=== PATIENT | female | born 1975 | race Caucasian/White ===

== ENCOUNTER 2018-10-02 13:11 | Outpatient (RCR) | payer BC ==
[~2018-10-02 13:11] MED LIST: ALBU8.5H2 IH; CEPH250T PO; EST05TD TD; ETAN50PE SQ; FEXO180T PO; HYDR-707 PO; IBP800T PO; OMG1KC PO; PROBIOTIC1 EACH PO
== END 2018-10-02 14:53 | disposition home or self-care (01) ==
PROVIDERS: ATTEND Orthopaedic Surgery Sports Medicine
DX: M17.12 Unilateral primary osteoarthritis, left knee (principal)

== ENCOUNTER 2019-09-09 12:24 | Emergency (ER) | payer BC ==
[~2019-09-09] VITALS: Ht 165 cm; Wt 69.0 kg
--- OUTSIDE RECORDS SUMMARY | 2019-09-09 12:30 | XMS REPORT ---
Author Author Kisha PRICE [facility] eClinicalWorks Address Unknown Phone Unavailable Care Team Providers Care Temporary Help Agency Referral Clerk Name Role Phone JOSE JUAN PRICE CP Unavailable Allergies, Adverse Reactions, Alerts Substance Reaction Event Type Sulfacet-R hives Drug Allergy Problems Problem Type Condition Code Onset Dates Condition Statu s Assessment Knee pain, left M25.562 Active Medications Medication Code System Code Instructions Start Date End Date Status Dosage Probiotic [facility] [address]22787 not define d Turmeric [facility] [address]-32 not defin ed Iron [facility] [address]-74 not define d Glutathione [facility] [address]-88 not de fined Vitamin D [facility] [address]-70 not defi alejandra Procedures Procedure Coding System Code Date Office Visit, New Pt., Level 2 CPT-4 04753 A pril 2015 Vital Signs Date/Time: July 04, 2015 Cardiac Monitoring Heart Rate 86 bpm Temperature 98.2 F Weight 160.3 lbs Blood Pressure Diastolic 76 mmHg Blood Pressure Systolic 112 mmHg Results No Known Results Summary Purpose eClinicalWorks Submission
--- OUTSIDE RECORDS SUMMARY | 2019-09-09 12:30 | XMS REPORT | Continuity of Care Document ---
Author Organization Unknown Address Unknown Phone Unavailable Allergies Active Description Code Type Severity Reaction Onset Reported/Identified Relationship to Patient Clinical Status Yes Sulfa (Sulfonamide Antibiotics) [id number] Drug Allergy Unknown N/A 009 Medications There is no data. Problems Date Dx Coded Attending Type Code Diagnosis Diagnosed By 04/02/2011 Ot 617.9 04/02/2011 Ot 620.2 12/25/2014 Ot 617.9 12/25/2014 Ot V72.63 12/26/2014 Ot 617.9 12/26/2014 Ot V72.63 10/02/2018 PEPE MATHUR, FRANCISCO Wild Ot M17.12 UNILATERAL PRIMARY OSTEOARTHRITIS, LEFT Procedures There is no data. Results There is no data. Encounters ACCT No. Visit Date/Time Discharge Status Pt. Type Provider Facility Loc./Unit Complaint [id number] 09/13/2018 11:03:00 09/13/2018 23:59: 00 DIS Outpatient FRANCISCO CANTU [id number] 09/13/2018 10:06:00 09/13/2018 23:59: 00 DIS Outpatient FRANCISCO CANTU [id number] 04/19/2018 09:00:00 04/19/2018 23:59: 59 CLS Outpatient DONNELL ALAMO APRN [facility] [id number] 10/02/2018 13:11:00 019 14:53:00 DIS Outpatient FRANCISCO CANTU MD [facility] REHAB L KNEE ARTHRITIS [id number] 04/19/2018 13:10:00 019 23:59:59 CLS Preadmit SARAH HURLEY APRN [facility] RAD SCREENING [id number] 09/09/2019 12:25:[address] Emergency SHIRA OTTO MD [facility] ER POST OP/L KNEE INFECTION [id number] 12/25/2014 11:00:00 Document Registration [id number] 12/25/2014 11:00:00 Document Registration [id number] 12/25/2014 11:00:00 Document Registration [id number] 12/25/2014 11:00:00 Document Registration [id number] 04/01/2011 06:24:00 Document Registration [id number] 03/25/2011 08:32:00 Document Registration
--- NOTE | 2019-09-09 13:05 | ED Lower Extremity ---
General Stated Complaint: POST OP/L KNEE INFECTION Source: patient Exam Limitations: no limitations (QUITA SOTO,) History of Present Illness Date Seen by Provider: Sep 09, 2019 Time Seen by Provider: 12:45 Initial Comments Ms. Alexander is here regarding L knee swelling and purulent drainage from a suture site. She had a L knee surgery at [facility] on 08/[address] Robertson and was feeling fine. Tuesday (09/03) she noted some redness around the suture site, but was told this was her skin reacting to the sutures. They were removed that day. However, she arrived to the [facility] ER yesterday with increasing warmth and swelling from the same suture site. She was prescribed clindamycin QID. ER doc at [facility] commented that it was a superficial infection but not in the joint space. She has returned to using crutches because she is unable to ambulate. Pt states she is taking Actemra for rheumatoid arthritis treatment. Onset: yesterday Severity: moderate Pain/Injury Location: left knee Method of Injury: other (surgical site) Modifying Factors: Improves With Movement (QUITA SOTO,) Allergies and Home Medications Allergies Coded Allergies: Sulfa (Sulfonamide Antibiotics) (Verified Allergy, Unknown, 08/22/08) Home Medications Albuterol 8.5 Gm Hfa.aer.ad, 8.5 GM IH Q4H PRN, (Reported) 2 PUFFS Cephalexin Monohydrate 250 Mg Tablet, 1 EACH PO TID, (Reported) Estradiol 0.05 Mg Patch, 0.05 MG TD Th@09, (Reported) Etanercept 50 Mg/1 Ml Pen.injctr, 50 MG SQ WEEKLY, (Reported) Fexofenadine Hcl 180 Mg Tablet, 1 TAB PO DAILY, (Reported) Hydrocodone Bit/Acetaminophen 1 Each Tablet, 1-2 EACH PO Q4H, (Reported) NEEDED FOR PAIN Ibuprofen 800 Mg Tab, 800 MG PO TID, (Reported) NEEDED FOR PAIN Lactobacillus Rhamnosus Gg 1 Each Capsule, 1 EACH PO DAILY, (Reported) [place] 3 Polyunsat Fatty Acids 1,000 Mg Cap, 2,000 MG PO DAILY, (Reported) Patient Home Medication List Home Medication List Reviewed: Yes (SHIRA OTTO MD) Review of Systems Constitutional: No chills, No fever EENTM: no symptoms reported Respiratory: no symptoms reported Cardiovascular: no symptoms reported Gastrointestinal: no symptoms reported Genitourinary: no symptoms reported Musculoskeletal: joint pain (L knee) Skin: see HPI Psychiatric/Neurological: No Symptoms Reported (QUITA SOTO,) Past Dtjcjyl-Jetpop-Hjjfqc Hx Past Med/Social Hx: Reviewed Nursing Past Med/Soc Hx (SHIRA OTTO MD) Patient Social History Recent Foreign Travel: No Contact w/Someone Who Travel: No (QUITA SOTO) Immunizations Up To Date Date of Influenza Vaccine: Nov 30, 2010 (QUITA SOTO) Past Medical History Reproductive Disorders: Yes (BLEEDING AND PAIN) (QUITA SOTO) Surgeries: Yes Hysterectomy, Orthopedic (Left knee) Respiratory: No Cardiac: No Neurological: No : No Reproductive Disorders: No Genitourinary: No Gastrointestinal: No Musculoskeletal: Yes Rheumatoid Arthritis Endocrine: No HEENT: No Cancer: No Psychosocial: No Integumentary: No (SHIRA OTTO MD) Physical Exam Vital Signs Vital Signs - First Documented 09/09/19 13:16 Temp 36.8 Pulse 75 Resp 16 B/P (MAP) 158/101 (120) Pulse Ox 99 O2 Delivery Room Air (SHIRA OTTO MD) Vital Signs Capillary Refill : (QUITA SOTO,) Height, Weight, BMI Height: '" Weight: lbs. oz. kg; BMI Method: (QUITA SOTO) General Appearance: WD/WN, no apparent distress HEENT: normal ENT inspection Cardiovascular: regular rate, rhythm, no edema, no murmur Respiratory: lungs clear, normal breath sounds, no respiratory distress Legs: left leg other (tenderness over the anterior distal left thigh) Knees: left knee other (left knee is quite warm, swollen, and tender to the touch. 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 There is purulent drainage coming from a suture puncture at the left knee incision) (SHIRA OTTO MD) Progress/Results/Core Measures Results/Orders My Orders Orders - SHIRA OTTO MD Wound Culture (09/09/19 14:03) (SHIRA OTTO MD) Vital Signs/I&O 09/09/19 09/09/19 13:16 14:05 Temp 36.8 36.4 Pulse 75 80 Resp 16 16 B/P (MAP) 158/101 (120) 136/96 Pulse Ox 99 98 O2 Delivery Room Air Room Air (SHIRA OTTO MD) Progress Progress Note : Time: 13:35 Progress Note Unfortunately [facility] does not have orthopedic coverage this weekend. I'm concerned that patient has an abscess in the left knee associated with her surgical incision. Furthermore I am also concerned she may have a septic joint especially since she is having trouble bearing weight and cannot walk without crutches. This is a change in her status from a couple of days ago. It is my opinion she needs prompt evaluation by an orthopedic surgeon. I am especially concerned because she is immunocompromised as she takes Actemra for rheumatoid arthritis. I contacted Dr. Donovan, orthopedic surgeon information broker for Dr. Robertson at [facility]. He has recommended evaluation in their ER. Dr. Desir is the ER physician who will be accepting the transfer. Case has been reviewed with him as well. Wound culture was obtained and patient was transferred by private vehicle. (SHIRA OTTO MD) Departure Impression Primary Impression: Postoperative infection of knee Disposition: XFER T-TRM HOSP Condition: Stable Transfer Transfer Reason: Exceeds level of care Time Spoke to Accepting Phy: 13:10 Transfer Progress Notes Transfer accepted by Dr. Donovan in orthopedics and Dr. Desir in the emergency room. Transfer Time: 13:42 Method of Transfer: Private Vehicle (SHIRA OTTO MD) Departure-Patient Inst. Referrals: ARMANI BRENNER MD (PCP/Family) Primary Care Physician This patient was interviewed, seen, and examined by me personally along with Quita Soto, MS4. I agree with MS 4 history, physical, assessment, and documentation except where I have added or documented otherwise. Patient is being transferred to [facility] for orthopedic evaluation. Wound culture was collected but no other treatments were rendered or workup pursued as she will be evaluated in the emergency room at [facility]. (SHIRA OTTO MD) Copy Copies To 1: ARMANI BRENNER MD, LAUREN, Sep 09, 2019 13:05 SHIRA OTTO MD Sep 09, 2019 13:37
--- NOTE | 2019-09-09 13:15 | NUR ---
Patient is going to be transferred to [place] via private vehicle. Face sheet and vitals faxed to [facility].
[2019-09-09 14:05] VITALS: BP 136/96
--- NOTE | 2019-09-09 14:15 | NUR ---
Report called to Nicolas BOWDEN
== END 2019-09-09 14:21 ==
LOC: EDUNIT# 12:24 → ER 12:25
DX: T81.40XA Infection following a procedure, unspecified, initial encounter (principal); M06.9 Rheumatoid arthritis, unspecified; Z88.2 Allergy status to sulfonamides; Z79.52 Long term (current) use of systemic steroids; Z79.1 Long term (current) use of non-steroidal anti-inflammatories (NSAID)
CPT/HCPCS: 87070; 87077; 87186; 87205

== ENCOUNTER 2019-10-15 13:15 | Outpatient (RCR) | payer BC ==
[2019-09-20 11:26] VITALS: BP 153/84
[2019-09-20] MEDS: cefTRIAXone 2,000 MG/SWFI 20 ML IV PUSH IV SCH ×2 (11:33)
[2019-09-21 14:04] VITALS: BP 145/83
[2019-09-21] MEDS: cefTRIAXone 2,000 MG/SWFI 20 ML IV PUSH IV SCH ×2 (14:04)
[2019-09-22] MEDS: cefTRIAXone 2,000 MG/SWFI 20 ML IV PUSH IV SCH ×2 (09:20)
[2019-09-22 09:31] VITALS: BP 137/86
[2019-09-23 09:15] VITALS: BP 130/90
[2019-09-23] MEDS: cefTRIAXone 2,000 MG/SWFI 20 ML IV PUSH IV SCH ×2 (09:25)
[2019-09-24] MEDS: cefTRIAXone 2,000 MG/SWFI 20 ML IV PUSH IV SCH ×2 (13:33)
[2019-09-24 13:35] VITALS: BP 145/85
[2019-09-25] MEDS: cefTRIAXone 2,000 MG/SWFI 20 ML IV PUSH IV SCH ×2 (14:02)
[2019-09-25 14:10] VITALS: BP 147/84
[2019-09-25 14:19] LABS: HEMOGLOBIN 11.4 G/DL (11.5-16.0); MEAN PLATELET VOLUME 9.5 FL (7.4-10.4); RED CELL DISTRIBUTION WIDTH 13.3 % (10.0-14.5); WHITE BLOOD COUNT 3.7 10^3/uL (4.3-11.0)
[2019-09-25 14:33] LABS: CHLORIDE 104 MMOL/L (98-107); POTASSIUM 3.9 MMOL/L (3.6-5.0); SODIUM 139 MMOL/L (135-145)
[2019-09-25 14:34] LABS: CALCIUM 8.9 MG/DL (8.5-10.1)
[2019-09-25 14:35] LABS: GLUCOSE 86 MG/DL (70-105)
[2019-09-25 14:36] LABS: CARBON DIOXIDE 25 MMOL/L (21-32)
[2019-09-25 14:38] LABS: CREATININE SERUM 0.71 MG/DL (0.60-1.30); GFR ESTIMATED > 60
[2019-09-25 14:39] LABS: BUN/CREATININE RATIO 18
[2019-09-26 13:58] VITALS: BP 145/96
[2019-09-26] MEDS: cefTRIAXone 2,000 MG/SWFI 20 ML IV PUSH IV SCH ×2 (14:04)
[2019-09-27] MEDS: cefTRIAXone 2,000 MG/SWFI 20 ML IV PUSH IV SCH ×2 (12:30)
[2019-09-27 12:43] VITALS: BP 129/74
[2019-09-28] MEDS: cefTRIAXone 2,000 MG/SWFI 20 ML IV PUSH IV SCH ×2 (14:20)
[2019-09-28 14:30] VITALS: BP 136/91
[2019-09-29] MEDS: cefTRIAXone 2,000 MG/SWFI 20 ML IV PUSH IV SCH ×2 (09:14)
[2019-09-29 09:20] VITALS: BP 159/94
[2019-09-30] MEDS: cefTRIAXone 2,000 MG/SWFI 20 ML IV PUSH IV SCH ×2 (09:10)
[2019-09-30 09:15] VITALS: BP 152/93
[2019-10-01 14:05] VITALS: BP 123/80
[2019-10-01] MEDS: cefTRIAXone 2,000 MG/SWFI 20 ML IV PUSH IV SCH ×2 (14:11)
[2019-10-02 13:05] VITALS: BP 120/83
[2019-10-02] MEDS: cefTRIAXone 2,000 MG/SWFI 20 ML IV PUSH IV SCH ×2 (13:10)
[2019-10-02 13:19] LABS: HEMOGLOBIN 11.2 G/DL (11.5-16.0); MEAN PLATELET VOLUME 9.5 FL (7.4-10.4); RED CELL DISTRIBUTION WIDTH 13.6 % (10.0-14.5); WHITE BLOOD COUNT 2.8 10^3/uL (4.3-11.0)
[2019-10-02 13:38] LABS: BUN/CREATININE RATIO 16; CALCIUM 8.6 MG/DL (8.5-10.1); CARBON DIOXIDE 27 MMOL/L (21-32); CHLORIDE 105 MMOL/L (98-107); CREATININE SERUM 0.69 MG/DL (0.60-1.30); GFR ESTIMATED > 60; GLUCOSE 100 MG/DL (70-105); POTASSIUM 4.1 MMOL/L (3.6-5.0); SODIUM 142 MMOL/L (135-145)
[2019-10-03] MEDS: cefTRIAXone 2,000 MG/SWFI 20 ML IV PUSH IV SCH ×2 (14:55)
[2019-10-03 15:05] VITALS: BP 138/67
[2019-10-04 15:15] VITALS: BP 149/82
[2019-10-04] MEDS: cefTRIAXone 2,000 MG/SWFI 20 ML IV PUSH IV SCH ×2 (15:26)
[2019-10-05 15:40] VITALS: BP 141/95
[2019-10-05] MEDS: cefTRIAXone 2,000 MG/SWFI 20 ML IV PUSH IV SCH ×2 (15:44)
[2019-10-06 09:15] VITALS: BP 145/89
[2019-10-06] MEDS: cefTRIAXone 2,000 MG/SWFI 20 ML IV PUSH IV SCH ×2 (09:15)
[2019-10-07] MEDS: cefTRIAXone 2,000 MG/SWFI 20 ML IV PUSH IV SCH ×2 (09:14)
[2019-10-07 09:20] VITALS: BP 140/83
[2019-10-08] MEDS: cefTRIAXone 2,000 MG/SWFI 20 ML IV PUSH IV SCH ×2 (13:18)
[2019-10-08 13:22] VITALS: BP 139/89
[2019-10-09] MEDS: cefTRIAXone 2,000 MG/SWFI 20 ML IV PUSH IV SCH ×2 (14:43)
[2019-10-09 14:45] VITALS: BP 142/94
[2019-10-09 14:50] LABS: BASOPHILS # (AUTO) 0.1 10^3/uL (0.0-0.1); BASOPHILS % (AUTO) 2 % (0-10); EOSINOPHILS # (AUTO) 0.3 10^3/uL (0.0-0.3); EOSINOPHILS % (AUTO) 7 % (0-10); HEMATOCRIT 36 % (35-52); LYMPHOCYTES # (AUTO) 1.9 X 10^3 (1.0-4.0); LYMPHOCYTES % (AUTO) 41 % (12-44); MEAN CORPUSCULAR HEMOGLOBIN 31 PG (25-34); MEAN CORPUSCULAR HGB CONC 34 G/DL (32-36); MEAN CORPUSCULAR VOLUME 90 FL (80-99); MEAN PLATELET VOLUME 9.8 FL (7.4-10.4); MONOCYTES # (AUTO) 0.4 X 10^3 (0.0-1.0); MONOCYTES % (AUTO) 9 % (0-12); NEUTROPHILS % (AUTO) 42 % (42-75); PLATELET COUNT 107 10^3/uL (130-400); RED CELL DISTRIBUTION WIDTH 13.2 % (10.0-14.5); WHITE BLOOD COUNT 4.8 10^3/uL (4.3-11.0)
[2019-10-09 15:05] LABS: BUN/CREATININE RATIO 15; CALCIUM 8.9 MG/DL (8.5-10.1); CARBON DIOXIDE 26 MMOL/L (21-32); CHLORIDE 106 MMOL/L (98-107); CREATININE SERUM 0.72 MG/DL (0.60-1.30); GFR ESTIMATED > 60; GLUCOSE 85 MG/DL (70-105); SODIUM 140 MMOL/L (135-145)
[2019-10-09 15:17] LABS: ERYTHROCYTE SEDIMENTATION RATE 10 MM/HR (0-20)
[2019-10-10] MEDS: cefTRIAXone 2,000 MG/SWFI 20 ML IV PUSH IV SCH ×2 (14:42)
[2019-10-10 14:50] VITALS: BP 129/86
[2019-10-11] MEDS: cefTRIAXone 2,000 MG/SWFI 20 ML IV PUSH IV SCH ×2 (14:20)
[2019-10-11 14:25] VITALS: BP 128/91
[2019-10-12 11:30] VITALS: BP 145/84
--- NOTE | 2019-10-12 11:30 | NUR ---
PT ASKED THIS NURSE TO CALL DR FULTON OFFICE IN [place] FOR ORDER TO DC PICC LINE ON TUESDAY AFTER HER ANTIBX. PT REPORTS HAS APPT WITH ON TUESDAY. TC MADE TO DR ESPARZA, NO ANSWER, LM ON TO CALL ME BACK ABOUT ORDER . OFFICE SLOSED AT 1200 AND THIS NURSE DID NOT RECEIVE A TC BACK.
[2019-10-12] MEDS: cefTRIAXone 2,000 MG/SWFI 20 ML IV PUSH IV SCH ×2 (11:39)
[2019-10-13] MEDS: cefTRIAXone 2,000 MG/SWFI 20 ML IV PUSH IV SCH ×2 (09:18)
[2019-10-13 09:26] VITALS: BP 133/91
[2019-10-14] MEDS: cefTRIAXone 2,000 MG/SWFI 20 ML IV PUSH IV SCH ×2 (09:05)
[2019-10-14 09:12] VITALS: BP 139/83
[~2019-10-15] VITALS: Ht 165.1 cm; Wt 69.0 kg
[~2019-10-15 13:15] MED LIST changes: +WATER (STERILE) FOR INJECTION 20 ML ONE; +cefTRIAXone 2 GM IV (ROCEPHIN) VIAL ONE; +cefTRIAXone 2,000 MG/SWFI 20 ML IV PUSH IV SCH
[2019-10-15] MEDS: cefTRIAXone 2,000 MG/SWFI 20 ML IV PUSH IV SCH ×2 (13:23)
[2019-10-15 13:30] VITALS: BP 149/87
== END 2019-10-15 13:30 | disposition home or self-care (01) ==
LOC: SDC 13:15
PROVIDERS: ATTEND Specialist
DX: M25.462 Effusion, left knee (principal)
CPT/HCPCS: 36415; 80048; 85025; 85027; 85652; 86141; 96374

== ENCOUNTER → 2022-01-11 | Outpatient (CLI) | payer BC ==
[~2022-01-11] MED LIST changes: -WATER (STERILE) FOR INJECTION 20 ML ONE; -cefTRIAXone 2 GM IV (ROCEPHIN) VIAL ONE; -cefTRIAXone 2,000 MG/SWFI 20 ML IV PUSH IV SCH
--- NOTE | 2022-01-11 12:51 | Diagnostic Imaging Report ---
INDICATION: Routine screening. COMPARISON: 07/05/2012. TECHNIQUE: 2D and 3D bilateral screening mammography was performed with CAD. FINDINGS: Scattered fibroglandular densities are identified bilaterally. No mass or malignant-appearing microcalcifications are seen. The axillae are unremarkable. IMPRESSION: No mammographic features suspicious for malignancy are identified. ACR BI-RADS Category 1: Negative. Result letter will be mailed to the patient. Note: At least 10% of breast cancer is not imaged by mammography. Dictated by: Dictated on workstation # [id number]
== END ==
LOC: RAD 11:27
PROVIDERS: ATTEND Family Medicine
DX: Z12.31 Encounter for screening mammogram for malignant neoplasm of breast (principal)
CPT/HCPCS: 77063; 77067

== ENCOUNTER → 2022-06-29 | Outpatient (CLI) | payer SELFPAY ==
--- NOTE | 2022-06-29 16:09 | Diagnostic Imaging Report ---
EXAMINATION: CT calcium scoring without contrast. TECHNIQUE: Multiple contiguous axial images were obtained through the chest without the use of intravenous contrast for purposes of calcium scoring. All CT scans use one or more of the following dose optimizing techniques: automated exposure control, MA and/or KvP adjustment based on patient size and exam type or iterative reconstruction. HISTORY: Coronary artery calcium screening COMPARISON: None available. FINDINGS: Coronary artery calcium score is 0. Heart size is normal. No pericardial effusion. Aorta is normal in caliber. No lymphadenopathy is seen. Visualized lungs are clear without edema or pneumonia. No pleural effusion or pneumothorax. No osseus lesions are seen. Limited views of the upper abdomen are unremarkable. IMPRESSION: 1. Calculated coronary artery calcium score of 0. Dictated by: Dictated on workstation # [id number]
== END ==
LOC: RAD 12:45
PROVIDERS: ATTEND Family Medicine
DX: Z13.6 Encounter for screening for cardiovascular disorders (principal)
CPT/HCPCS: 75571